=== PATIENT | female | born 1950 | race Caucasian/White ===

== ENCOUNTER 2017-08-18 11:22 | Emergency (ER) | payer MEDICARE, BC ==
[2017-08-18 11:59] VITALS: BP 155/95
--- NOTE | 2017-08-18 13:12 | UC ---
Jonathan Lopez Stephanie, scribed for Jose Keen MD on 08/18/17 at 1240 . FLU HPI - HPI Summary HPI Summary: The pt is a 67 y/o F presenting to with c/o L ear pain that began last night. Symptoms include SALCEDO, L ear pain, fever, myalgia, chills, jaw pain, sore throat, pain with opening mouth, and diaphoresis. - History of Current Complaint Chief Complaint: UCRespiratory Stated Complaint: ACHES, FEVER, AND EAR ACHE Time Seen by Provider: 08/18/17 12:18 Hx Obtained From: Patient Onset/Duration: Gradual Onset, Lasting Days - 1, Still Present Severity Currently: Moderate Pain Intensity: 7 Pain Scale Used: 0-10 Numeric Associated Signs & Symptoms: Positive: Myalgia, Sore Throat, Headache. Negative : Fever - Allergy/Home Medications Allergies/Adverse Reactions: Allergies Allergy/AdvReac Type Severity Reaction Status Date / Time No Known Allergies Allergy Verified 08/18/17 11:59 PMH/Surg Hx/FS Hx/Imm Hx Cardiovascular History: Hypertension - Surgical History Surgical History: Yes Surgery Procedure, Year, and Place: RIGHT TOTAL HIP REPLACEMENT 2006 syr. UTERINE FIBROID REMOVAL. SINUS SURGERY. TRIGGER FINGER RELEASE x2. RIGHT WRIST - Family History Known Family History: Positive: Diabetes, Other - cancer - Social History Occupation: Retired Lives: With Family Alcohol Use: Occasionally Substance Use Type: None Smoking Status (MU): Never Smoked Tobacco - Immunization History Most Recent Influenza Vaccination: 2016 Most Recent Tetanus Shot: UTD Most Recent Pneumonia Vaccination: never Review of Systems Constitutional: Fever, Chills Skin: Other - diaphoresis Eyes: Negative ENT: Sore Throat, Ear Ache, Other - jaw pain when opening mouth Respiratory: Other Cardiovascular: Negative Gastrointestinal: Negative Genitourinary: Negative Motor: Negative Neurovascular: Negative Musculoskeletal: Myalgia Neurological: Headache Psychological: Negative All Other Systems Reviewed And Are Negative: Yes Physical Exam Triage Information Reviewed: Yes Vital Signs: Initial Vital Signs Temp 98.2 F 08/18/17 11:56 Pulse 82 08/18/17 11:56 Resp 18 08/18/17 11:56 BP 155/95 08/18/17 11:56 Pulse Ox 99 08/18/17 11:56 - Additional Comments General: Mildly ill-appearing, no pain distress Skin: warm, color reflects adequate perfusion, dry Head: normal Eyes: EOMI, ASHIA ENT: normal, Posterior pharynx nonerythematous, Pt opens mouth abt 3 cm. Tender to palpation L TMJ.voice nml, no hoarseness Neck: supple, nontender Respiratory: CTA, breath sounds present Cardiovascular: RRR Abdomen: soft, nontender Bowel: present Musculoskeletal: normal, strength/ROM intact Neurological: normal, sensory/motor intact, A&O x3 Psychological: affect/mood appropriate Flu Course/Dx - Course Course Of Treatment: Medications reviewed. BP noted and advised to follow up with PCP. FLU LIKE ILLNESS THEREFORE, TAMIFLU RX. WITH LEFT JAW/EAR PAIN, WILL TREAT WITH ABX AND NSAIDS. F/U PMD; RETURN IF WORSE. - Differential Dx/Diagnosis Provider Diagnoses: FLU LIKE ILLNESS AND LEFT EAR/JAW PAIN Discharge - Discharge Plan Condition: Stable Disposition: HOME Prescriptions: Amoxicillin/Clavulanate TAB* [Augmentin TAB 875*] 875 mg PO BID #20 tab Oseltamivir CAP* [Tamiflu CAP*] 75 mg PO BID #10 cap Patient Education Materials: Influenza (ED), Earache (ED) Referrals: Susan MOREL,Shanell Ochoa [Primary Care Provider] - Additional Instructions: FOLLOW UP WITH YOUR DOCTOR. GET RECHECKED FOR ANY WORSENING OF YOUR CONDITION OR QUESTIONS OR CONCERNS. Your blood pressure was elevated during todays visit; please follow up with your primary care provider within a week for further evaluation The documentation as recorded by the Jonathan smith Stephanie accurately reflects the service I personally performed and the decisions made by me, Jose Keen MD.
== END 2017-08-18 13:00 | disposition home or self-care (01) ==
LOC: UCEAST 11:22
DX: J11.1 Influenza due to unidentified influenza virus with other respiratory manifestations (principal); H92.02 Otalgia, left ear; R68.84 Jaw pain
CPT/HCPCS: 87502; 99212; G0463

== ENCOUNTER 2018-01-05 12:49 | Emergency (ER) | payer MEDICARE, BC ==
[2018-01-05 13:07] VITALS: BP 142/77
--- NOTE | 2018-01-05 13:24 | UC ---
Skin Complaint HPI - HPI Summary HPI Summary: 67 yo female presents with rash to b/l legs, hands, and chest for the last 4 days. Legs seems to be getting worse. Very itchy. Yellow crusting around sores on legs. Has been doing gardening about a week ago, but has never had any reaction like this in the past. Has been applying calamine lotion and taking benadryl with mild relief of itch. Denies fever, chills, SOB. - History of Current Complaint Chief Complaint: UCSkin Time Seen by Provider: 01/05/18 13:24 Stated Complaint: RASH Hx Obtained From: Patient Onset/Duration: Gradual Onset Current Severity: None Pain Intensity: 0 - Allergy/Home Medications Allergies/Adverse Reactions: Allergies Allergy/AdvReac Type Severity Reaction Status Date / Time No Known Allergies Allergy Verified 01/05/18 13:07 Home Medications: Home Medications Escitalopram Oxalate [Lexapro 10 mg] 1 tab PO DAILY 01/05/18 [History Confirmed 01/05/18] Review of Systems Constitutional: Negative Skin: Rash Eyes: Negative ENT: Negative Respiratory: Negative Cardiovascular: Negative Neurological: Negative Psychological: Negative All Other Systems Reviewed And Are Negative: Yes PMH/Surg Hx/FS Hx/Imm Hx Previously Healthy: Yes Psychological History: Anxiety, Depression - Surgical History Surgical History: Yes Surgery Procedure, Year, and Place: RIGHT TOTAL HIP REPLACEMENT 2006 syr. UTERINE FIBROID REMOVAL. SINUS SURGERY. TRIGGER FINGER RELEASE x2. RIGHT WRIST - Family History Known Family History: Positive: Diabetes, Other - cancer - Social History Lives: With Family Alcohol Use: Occasionally Substance Use Type: None Smoking Status (MU): Never Smoked Tobacco - Immunization History Most Recent Influenza Vaccination: 2016 Most Recent Tetanus Shot: UTD Most Recent Pneumonia Vaccination: never Physical Exam - Summary Physical Exam Summary: GENERAL: NAD. WDWN. No pain distress. SKIN: B/L Legs: Scattered blistering and skin erosions with yellow crusts overlying patches on medial knees and upper legs. No active drainage. b/l hands with similar lesions, but more mild. No streaking, bleeding, or drainage. NECK: Supple. Nontender. No lymphadenopathy. CHEST: No accessory muscle use. Breathing comfortably and in no distress. CV: RRR. Without m/r/g. NEURO: Alert. CN II-XII grossly intact. PSYCH: Age appropriate behavior. Triage Information Reviewed: Yes Vital Signs: Initial Vital Signs Temp 97.8 F 01/05/18 13:04 Pulse 69 01/05/18 13:04 Resp 12 01/05/18 13:04 BP 142/77 01/05/18 13:04 Pulse Ox 100 01/05/18 13:04 Course/Dx - Course Course Of Treatment: Suspect staph infection secondary to contact dermatitis. Advised to f/u if symptoms worsen/persist. - Diagnoses Provider Diagnoses: Contact dermatitis Discharge - Sign-Out/Discharge Documenting (check all that apply): Discharge/Admit/Transfer - Discharge Plan Condition: Stable Disposition: HOME Prescriptions: Cephalexin CAP* [Keflex CAP*] 500 mg PO TID #21 cap Mupirocin 2% CREAM* [Bactroban 2% CREAM*] 1 applic TOPICAL BID #1 tube predniSONE TAB* [Deltasone TAB*] 50 mg PO DAILY #5 tab Patient Education Materials: Contact Dermatitis (DC) Referrals: Susan MOREL,Shanell Ochoa [Primary Care Provider] - Additional Instructions: If you develop a fever, shortness of breath, chest pain, new or worsening symptoms - please call your PCP or go to the ED. Your blood pressure was mildly elevated at todays visit. Please see your primary provider within 4 weeks for recheck and re-evaluation. 1) May continue taking Benadryl for the itch 2) Please f/u if your symptoms do not improve - Billing Disposition and Condition Condition: STABLE Disposition: Home
== END 2018-01-05 13:46 | disposition home or self-care (01) ==
LOC: UCEAST 12:49
DX: L25.9 Unspecified contact dermatitis, unspecified cause (principal); F41.9 Anxiety disorder, unspecified; F32.9 Major depressive disorder, single episode, unspecified; Z96.641 Presence of right artificial hip joint; Z83.3 Family history of diabetes mellitus; Z80.9 Family history of malignant neoplasm, unspecified
CPT/HCPCS: 99212; G0463